=== PATIENT | male | born 1950 | race Caucasian/White ===

== ENCOUNTER → 2019-12-11 | Outpatient (CLI) | payer OTHER ==
[~2019-12-11] MED LIST: RT-ALBUTEROL SULF 2.5 MG/3 ML PRE-MIX VIAL INH ONE
== END ==
LOC: RT 10:00
PROVIDERS: ATTEND Family Medicine
DX: R06.00 Dyspnea, unspecified (principal); D75.1 Secondary polycythemia; Z72.0 Tobacco use
CPT/HCPCS: 94060; 94726; 94729

== ENCOUNTER → 2022-05-04 | Outpatient (CLI) | payer OTHER ==
--- NOTE | 2022-05-04 16:16 | Diagnostic Imaging Report ---
CT CHEST WO TECHNIQUE: Multiple contiguous axial images were obtained through the chest without the use of intravenous contrast. All CT scans use one or more of the following dose optimizing techniques: automated exposure control, MA and/or KvP adjustment based on a patient size and exam type, or iterative reconstruction. INDICATION: COPD. Nocturnal hypoxia COMPARISON: None available FINDINGS: Lungs and airway: No abnormality of the trachea. Severe paraseptal and centrilobular emphysema. Large bulla are present in the left lung. There is no pneumonia or edema. No suspicious pulmonary nodules. Pleura: No pleural effusion or pneumothorax. Heart and mediastinum: Thyroid is normal. No supraclavicular or axillary lymphadenopathy. No mediastinal or hilar lymphadenopathy. Normal caliber thoracic aorta. There is no pericardial effusion. Severe coronary calcifications are noted. Upper abdomen: Cholelithiasis likely present but there are no features of acute cholecystitis. Punctate nonobstructing 1 mm left renal stone. Musculoskeletal: No worrisome focal osseous lesions. IMPRESSION: 1. Severe emphysema with large bulla in the left lung. 2. No suspicious pulmonary nodule. 3. Severe coronary artery calcification. Dictated by: Dictated on workstation # [id number]
== END ==
LOC: RAD 11:45
PROVIDERS: ATTEND Family Medicine
DX: J43.9 Emphysema, unspecified (principal); I25.10 Atherosclerotic heart disease of native coronary artery without angina pectoris
CPT/HCPCS: 71250

== ENCOUNTER → 2022-05-17 | Outpatient (CLI) | payer OTHER | LOC: RT 10:45 | PROVIDERS: ATTEND Family Medicine | DX: J44.9 Chronic obstructive pulmonary disease, unspecified (principal); G47.34 Idiopathic sleep related nonobstructive alveolar hypoventilation | CPT/HCPCS: 94060; 94726; 94729 ==

== ENCOUNTER → 2022-06-01 | Outpatient (CLI) | payer OTHER | LOC: CARD 15:00 | PROVIDERS: ATTEND Family Medicine | DX: I07.1 Rheumatic tricuspid insufficiency (principal); I25.10 Atherosclerotic heart disease of native coronary artery without angina pectoris | CPT/HCPCS: 93306 ==

== ENCOUNTER → 2022-08-13 | Outpatient (CLI) | payer OTHER ==
[~2022-08-13] MED LIST changes: +CATHETER FLUSH 10 ML SYR IVP PRN; +REGADENOSON 0.4 MG/5 ML SYR (LEXISCAN) IV ONE; -RT-ALBUTEROL SULF 2.5 MG/3 ML PRE-MIX VIAL INH ONE
[2022-08-13 09:17] VITALS: BP 144/90
--- NOTE | 2022-08-13 11:51 | Cardiology Stress Test Report ---
Stress Test Report Date of Procedure/Referring: Date of Procedure: August 13, 2022 PCP Steffany Jensen DO Admitting Physician Admitting Physician: Attending Physician: Raymundo Rodríguez MD Baseline Heart Rate: 76 Baseline Blood Pressure: Blood Pressure Systolic: 144 Blood Pressure Diastolic: 90 Baseline Vitals Vital Signs Date Time Temp Pulse Resp B/P (MAP) Pulse Ox O2 Delivery O2 Flow Rate FiO2 08/13/22 09:17 76 144/90 (108) Baseline EKG: Baseline EKG: NSR Summary After explaining the procedure to the patient, he signed a consent and then brought to the stress nuclear laboratory. Patient received 0.4 mg Lexiscan for stress test, ECG, heart rate and blood pressure were monitored continuously. Resting and stress dose of radio tracer were injected, imaging was acquired and reviewed in short axis, horizontal long axis and vertical long axis views. TID: 1.07 SSS: 11 SDS: 5 EF: 67 Patient tolerated Lexiscan well Baseline right bundle branch block persisted during test Reversible ischemia involving the inferior wall and inferolateral wall Normal left ventricular size, ejection fraction 67% Copy Copies To 1: STEFFANY JENSEN BASHAR J MD August 13, 2022 11:51
== END ==
LOC: CARD 07:48
PROVIDERS: ATTEND Internal Medicine Cardiovascular Disease
DX: I25.10 Atherosclerotic heart disease of native coronary artery without angina pectoris (principal); I10 Essential (primary) hypertension
CPT/HCPCS: 78452; 93017; A9502

== ENCOUNTER → 2022-08-24 | Outpatient (CLI) | payer MEDICARE, OTHER ==
[~2022-08-24] MED LIST changes: +ALBU8.5H6 INH; +ASPI-1238 PO; +ASPI-816 PO; +ASPI-999 PO; +ATOR40TA70 PO; +BUDE10.7 IH; +CATHETER FLUSH 10 ML SYR IV PRN; -CATHETER FLUSH 10 ML SYR IVP PRN; +HOLD METFORMIN - RECEIVED CONTRAST 20 ML VIAL IV SCH; +IBUP-2473 PO; +IOHEXOL 350 MG/ML 100 ML (OMNIPAQUE 350) VIAL IV ONE; +KRIL1CAP21 PO; +LISI20TA26 PO; +MTP100TCR PO; +NS 100 ML (IVPB) BAG IV ONE; -REGADENOSON 0.4 MG/5 ML SYR (LEXISCAN) IV ONE; +SILD100T67 PO; +TRIA10.8 NSEACH; +VIT1CAPS44 PO; +[UNRECOGNIZED DRUG - CODE] PO
[2022-08-24 10:17] LABS: CREATININE SERUM 1.08 MG/DL (0.60-1.30)
--- NOTE | 2022-08-24 11:08 | Diagnostic Imaging Report ---
PROCEDURE: CT angiography of the head and CT angiography of the neck with and without contrast. TECHNIQUE: Contiguous noncontrast images were obtained from the skull base through the vertex. After intravenous contrast administration, helical CT angiography of the neck was performed. Source data was reformatted into 3D MIP projections. Delayed post contrast acquisition was also obtained. Auto Exposure Controls were utilized during the CT exam to meet ALARA standards for radiation dose reduction. INDICATION: Carotid artery stenosis. COMPARISON: None. FINDINGS: CTA Neck: The visualized portions of the aortic arch demonstrate no evidence of aneurysm or dissection. There is conventional branching pattern of the great vessels of the aorta. The brachiocephalic artery is normal in course and caliber. The right and left common carotid origins are unremarkable. The origin of the left subclavian artery is patent. The common carotid arteries and internal carotid arteries demonstrate a tortuous course. There is calcified atherosclerotic plaque in the bilateral carotid bulbs and proximal internal carotid arteries. There is high-grade stenosis of approximately 90% in the proximal left internal carotid artery based on NASCET criteria. No evidence of dissection in the carotid systems. The external carotid arteries are patent and unremarkable. The vertebral arteries are codominant. The origin of the right vertebral artery is seen and is unremarkable. The origin of the left vertebral artery is seen and is unremarkable. There is no focal stenosis seen within the neck. There is no dissection. The vertebral arteries are well visualized to up to the level of the basilar artery. The osseous structures of the cervical spine are unremarkable. Emphysema is seen in the lung apices. CTA brain: Atherosclerotic plaque is seen in the gil of the bilateral terminal internal carotid arteries without significant stenosis. No stenosis is seen in the bilateral anterior, middle, and posterior cerebral arteries. No evidence of aneurysm the pauma of Olivier. In the posterior circulation, both of the vertebral arteries demonstrate normal opacification. Both the right and left PICA arteries are identified. The basilar artery is normal in course and caliber. The terminal branch vessels including the superior cerebellar arteries unremarkable. CT head: No large acute territorial ischemia, mass, or hemorrhage. No midline shift or mass effect. Decreased attenuation is seen in the periventricular and subcortical white matter. The ventricles and cortical sulci are prominent. The basilar cisterns are patent and unremarkable. There is prominent extra-axial space posterior to the right cerebellum. The calvarium is intact. The visualized paranasal sinuses are clear. IMPRESSION: 1. No stenosis or aneurysm in the pauma of Olivier. No large vessel occlusion. 2. High-grade stenosis of approximately 90% in the proximal left internal carotid artery. 3. No stenosis in the right carotid system and bilateral vertebral arteries. 4. No large acute territorial ischemia. No acute hemorrhage or mass. Dictated by: Dictated on workstation # [id number]
== END ==
LOC: RAD 10:15
PROVIDERS: ATTEND Internal Medicine Cardiovascular Disease
DX: I65.23 Occlusion and stenosis of bilateral carotid arteries (principal)
CPT/HCPCS: 36415; 70496; 70498; 82565; 84520

== ENCOUNTER 2022-08-29 11:00 | Day surgery (SDC) | payer MEDICARE, OTHER ==
[~2022-08-29] VITALS: Ht 182 cm; Wt 78.5 kg
[2022-08-29 09:41] VITALS: BP 144/78
[2022-08-29 09:43] LABS: HEMATOCRIT 48 % (40-54); HEMOGLOBIN 16.5 g/dL (13.3-17.7); MEAN CORPUSCULAR HEMOGLOBIN 34 pg (25-34); MEAN CORPUSCULAR HGB CONC 34 g/dL (32-36); MEAN CORPUSCULAR VOLUME 99 fL (80-99); MEAN PLATELET VOLUME 10.5 fL (9.0-12.2); PLATELET COUNT 250 10^3/uL (130-400); WHITE BLOOD COUNT 8.2 10^3/uL (4.3-11.0)
[2022-08-29 09:45] LABS: BILIRUBIN,URINE NEGATIVE (NEGATIVE); CLARITY,URINE CLEAR; COLOR,URINE YELLOW; GLUCOSE, URINE (UA) NEGATIVE (NEGATIVE); KETONES,URINE NEGATIVE (NEGATIVE); LEUKOCYTE ESTERASE ,URINE NEGATIVE (NEGATIVE); NITRITE,URINE NEGATIVE (NEGATIVE); PH,URINE 5.5 (5-9); PROTEIN,URINE NEGATIVE (NEGATIVE)
--- NOTE | 2022-08-29 09:47 | Cardiac Procedure Note-CS/ASA ---
Pre-Procedure Note Pre-Op Procedure Note Date of Available H&P: August 16, 2022 Date H&P Reviewed: Aug 29, 2022 Time H&P Reviewed: 09:46 History & Physical: H&P Reviewed, Patient Examed, No changes noted Pre-Operative Diagnosis: CAD Moderate Sedation PreProcedure Time 09:47 ASA Score 3 Airway Lungs Heart ASA score ASA 1: a normal healthy patient ASA 2: a patient with a mild systemic disease (mid diabetes, controlled hypertension, obesity ASA 3: a patient with a severe systemic disease that limits activity (angina, COPD, prior Myocardial infarction) ASA 4: a patient with an incapacitating disease that is a constant threat to life (CHF, renal failure) ASA 5: a moribund patient not expected to survive 24 hrs. (ruptured aneurysm) ASA 6: a declared brain- patient whose organs are being harvested. For emergent operations, add the letter E after the classification Mallampati Classification Grade 3 Sedation Plan Analgesia, Amnesia, Plan communicated to team members, Discussed options with patient/fam, Discussed risks with patient/fam The patient is an appropriate candidate to undergo the planned procedure, sedation, and anesthesia. The patient immediately re-assessed prior to indication. TASNEEM RAINES MD Aug 29, 2022 09:47
--- NOTE | 2022-08-29 09:51 | Diagnostic Imaging Report ---
EXAMINATION: Chest 1 view HISTORY: ABNORMAL STRESS TEST COMPARISON: None available. FINDINGS: Heart size and pulmonary vasculature are normal. Trace bilateral pleural effusions or pleural thickening. There are patchy opacities within the right mid and lower lung. Minimal left basilar opacities. Background emphysematous changes of the lungs. No pneumothorax. Degenerative changes of the thoracic spine. Osseous structures are otherwise intact. IMPRESSION: 1. Background COPD with possible superimposed pneumonia within the right mid and lower lung. Dictated by: Dictated on workstation # [id number]
[2022-08-29 09:55] LABS: BACTERIA,URINE TRACE /HPF; SQUAMOUS EPITHELIAL CELL,UR RARE /HPF
[2022-08-29 09:57] LABS: INR 0.9 (0.8-1.4); PROTHROMBIN TIME PATIENT 12.4 SEC (12.2-14.7)
[2022-08-29 10:03] LABS: ALBUMIN 4.2 GM/DL (3.2-4.5); BILIRUBIN,TOTAL 0.7 MG/DL (0.1-1.0); CALCIUM 9.8 MG/DL (8.5-10.1); CREATININE SERUM 0.86 MG/DL (0.60-1.30); POTASSIUM 3.9 MMOL/L (3.6-5.0); TOTAL PROTEIN 7.6 GM/DL (6.4-8.2)
[~2022-08-29 11:00] MED LIST changes: -ASPI-1238 PO; -ASPI-816 PO; -CATHETER FLUSH 10 ML SYR IV PRN; +HEParin (CATH LAB) 2,000 ML IV ONE; -HOLD METFORMIN - RECEIVED CONTRAST 20 ML VIAL IV SCH; -IOHEXOL 350 MG/ML 100 ML (OMNIPAQUE 350) VIAL IV ONE; -KRIL1CAP21 PO; +LIDOCAINE 1% INJ 20 ML VIAL ONE; -NS 100 ML (IVPB) BAG IV ONE; +NS IV 1000 ML 1,000 ML IV ONE; +NS IV 1000 ML 1,000 ML ONE; -VIT1CAPS44 PO
[2022-08-29] MEDS ORDERED: MIDAZOLAM 5 MG/5 ML (VERSED) VIAL ONE (11:08)
[2022-08-29] MEDS ORDERED: fentaNYL INJ 100 MCG/2 ML AMP ONE (11:08)
[2022-08-29] MEDS ORDERED: HEParin 1000 UNIT/ML (10ML VIAL) FOR BOLUS ONE (11:47)
[2022-08-29] MEDS ORDERED: NITRO DRIP 25000 MCG/D5W 250 ML IV ONE (12:09)
--- NOTE | 2022-08-29 12:26 | Cardiac Cath Report ---
Cardiac Cath Report Physician (s)/Cans Vacuum Tester (s) Physician TASNEEM RAINES MD Pre-Procedure Diagnosis Pre-Procedure Diagnosis: CAD Post-Procedure Note Procedure Start Date: Aug 29, 2022 Name of Procedure: Left heart catheterization IFR to the LAD IFR to the circumflex artery PTCA to the obtuse marginal Findings/Procedure Note PROCEDURE NOTE: 71-year-old gentleman with history of hypertension, hyperlipidemia, had an abnormal stress test, scheduled for cardiac catheterization possible PTCA. After explaining the procedure to the patient, all pros and cons were explained, all questions were answered. The patient signed the consent and then he was placed in the cardiac catheterization laboratory. Groin was prepped in SL fashion local anesthesia was used. Sheath placed in the right femoral artery. Maribell' right and left catheter were used to access the coronary system. Maribell right was prolapsed to the left ventricular cavity, pressure was measured. Pullback LV to aorta was done. Patient received 6000 units of heparin, Maribell left guide was used. iFR wire was advanced through the circumflex artery and at the mid circumflex artery IFR was 1.01. Then it was pulled back and redirected in the LAD and the mid LAD was 0.93. I pulled back the wire and redirected it in the obtuse marginal branch that is a small artery has 95% stenosis. Balloon angioplasty with 2 x 20 trek balloon was done with multiple inflation with no residual stenosis. At the end of the procedure the sheath was removed. Closure device FINDINGS: Hemodynamics LV 113/7, end-diastolic pressure of 7 Aorta 133/80 mean of 102 ANATOMY: Left Main is free of obstructive disease Left Anterior Descending is heavily calcified proximally with 50 to 60% stenosis proximally. iFR across the LAD was 0.93 Left Circumflex is calcified proximally with 50% stenosis proximally, IFR through the circumflex artery was 1.01 Obtuse marginal branch is a very small artery less than 2 mm with 95% ostial stenosis. I proceeded with balloon angioplasty using 2 x 20 trek balloon. Postintervention there was 0% residual stenosis. Right Coronary Artery is moderate in size dominant artery with no obstructive disease LV Gram was not done, pressure was measured PERCUTANEOUS INTERVENTION: Pre stenosis 95% Post Stenosis 0% Pre MARILIN flow 2 Post MARILIN flow 3 Dominance right coronary artery CONCLUSION: 95% ostial obtuse marginal branch stenosis, small artery successful balloon angioplasty with 0% residual stenosis. 50% mid circumflex artery stenosis with IFR 1.01. 50 to 60% proximal and mid LAD stenosis, heavily calcified artery with IFR 0.93 Dominant right coronary artery with nonobstructive disease Normal left ventricular end-diastolic pressure DISCUSSION AND RECOMMENDATION: Patient was loaded with aspirin and Plavix. Maximize medical therapy, adding statin and monitor Anesthesia Type: Conscious Sedation Estimated blood loss (mL): 25 ml Contrast Amount: 120 ml Post-Procedure Diagnosis Post-operative diagnosis: Chest pain Coronary artery disease Hypertension Hyperlipidemia TASNEEM RAINES MD Aug 29, 2022 12:26
[2022-08-29] MEDS ORDERED: PATIENT MAY USE OWN MEDS, ALL PO SCH (12:30)
[2022-08-29] MEDS ORDERED: IBUPROFEN TABLET 200 MG TAB PO PRN (12:30)
[2022-08-29] MEDS ORDERED: ASPIRIN 325 MG (5 GR) TABLET ONE (12:31)
[2022-08-29] MEDS ORDERED: CLOPIDOGREL 300 MG (PLAVIX) TABLET PO ONE (12:31)
[2022-08-29] MEDS ORDERED: KRIL1CAP21 PO (14:27)
[2022-08-29] MEDS ORDERED: ASPI-1238 PO (14:27)
[2022-08-29] MEDS ORDERED: ASPI-816 PO (14:27)
[2022-08-29] MEDS ORDERED: VIT1CAPS44 PO (14:27)
[2022-08-29] MEDS ORDERED: ATROPINE INJECTION 1 MG/10 ML SYR (ABBOTT) ONE (14:32)
[2022-08-29] MEDS: NS IV 1000 ML 1,000 ML IV SCH (15:08)
[2022-08-29] MEDS ORDERED: BREZTRI 160/9/4.8 MCG INHALER IH SCH (21:00)
[2022-08-30] MEDS: NS IV 1000 ML 1,000 ML IV SCH ×2 (00:07→08:16)
[2022-08-30] MEDS ORDERED: PANT40SU PO (06:43)
[2022-08-30] MEDS ORDERED: CLOP75TA28 PO (06:43)
--- NOTE | 2022-08-30 06:44 | Discharge Inst-Post CATH ---
Discharge Inst-CATH/EP Problems Reviewed?: Yes Post Cardiac Cath/EP D/C Inst Follow Up/Plan Appointment with Dr Rodríguez in 2-4 weeks <b>CARDIAC CATH/EP PROCEDURE DISCHARGE INSTRUCTIONS</b> ACTIVITY * Go Home directly and rest. * Limit activity of the leg (or wrist if it was used) for 7 days including aerobics, swimming, jogging, bicycling, etc. * Restrict stair-climbing for 7 days if possible, if not, climb up with your non-cath leg, then bring together on the same step. * Avoid lifting, pushing, pulling or excessive movement of the affected extremity for 7 days. * Customary sexual activity may be resumed after 2 days-use caution not to use a position that strains or causes pain to the affected extremity. * No driving for 24 hours. * NO SMOKING. * Avoid straining for bowel movements for 7 days. * Gentle walking on level ground is allowed. * Returning to work will depend on the type of procedure and the results. Your doctor will discuss this with you. CALL YOUR DOCTOR FOR ANY OF THE FOLLOWING: *If bleeding from the puncture site occurs- Apply gentle pressure to site with clean cloth and call your doctor or EMS. * If a knot or lump forms under the skin, increases in size, or causes pain. * If bruising appears to be worsening or moving further down your leg instead of disappearing. * Temperature above 101 F. CARE OF YOUR GROIN INCISION; * Bruising or purple discoloration of the skin near the puncture site is common. * You may shower only, no bathtub bathing for 5 days. Be careful to avoid slipping as your leg may feel stiff. * If a closure device was used on your femoral artery, please see the attached guide regarding care of the device and your leg. * Leave dressing on FOR 24 hours. CARE OF YOUR WRIST INCISION; * Bruising or purple discoloration of the skin near the puncture site is common. * You may shower. * DO NOT submerge wrist. * Leave dressing on FOR 24 hours. TASNEEM RODRÍGUEZ MD Aug 30, 2022 06:44
[2022-08-30] MEDS ORDERED: ATOR10TA PO (06:45)
[2022-08-30] MEDS ORDERED: MULTIVIT W/MINERALS TAB (THERAGRAN M) PO SCH (07:00)
[2022-08-30 07:30] VITALS: BP 141/88
[2022-08-30 08:00] VITALS: BP 145/77
--- NOTE | 2022-08-30 08:19 | Cardiology Progress Note ---
Subjective Date Seen by Provider: Aug 30, 2022 Time Seen by Provider: 08:18 Subjective/Events-last exam Patient was seen at bedside, laying down comfortably. No new complaint. Review of Systems General: No Chills, No Night Sweats, No Fatigue, No Malaise, No Appetite, No Other HEENT: No Head Aches, No Visual Changes, No Eye Pain, No Ear Pain, No Dysphasia, No Sinus Congestion, No Post Nasal Drip, No Sore Throat, No Other Pulmonary: No Dyspnea, No Cough, No Pleuritic Chest Pain, No Other Cardiovascular: No: Chest Pain, Palpitations, Orthopnea, Paroxysmal Noc. Dyspnea, Edema, Lt Headedness, Other Objective-Cardiology Exam Last Set of Vital Signs Vital Signs 08/30/22 08:00 Temp 36.5 Pulse 78 Resp 14 B/P (MAP) 145/77 (99) Pulse Ox 93 O2 Delivery Nasal Cannula O2 Flow Rate 2.00 I&O Intake and Output 08/30/22 00:00 Intake Total 100 ml Output Total 40 ml Balance 60 ml Intake Oral 100 ml Output Urine Total 40 ml General: Alert, Oriented X3, Cooperative HEENT: Atraumatic, PERRLA Neck: Supple, No JVD, No Thyromegaly Lungs: Clear to Auscultation, Normal Air Movement Heart: Regular Rate, Normal S1, Normal S2, No Murmurs Abdomen: Normal Bowel Sounds, Soft, No Tenderness, No Hepatosplenomegaly, No Masses Extremities: No Clubbing, No Cyanosis, No Edema, Normal Pulses, No Tenderness/Swelling Skin: No Rashes, No Breakdown, No Significant Lesion Neuro: Normal Gait, Normal Speech, Strength at 5/5 X4 Ext, Normal Tone, Sensation Intact Psych/Mental Status: Mental Status NL, Mood NL Results Lab Laboratory Tests 08/29/22 09:36 A/P-Cardiology Admission Diagnosis Coronary artery disease Hypertension Hyperlipidemia Chest pain Assessment/Plan Coronary artery disease Status post balloon angioplasty to the obtuse marginal. IFR to the circumflex and LAD showed nonobstructive disease Hypertension, continue on current medication monitor blood pressure Hyperlipidemia, monitor lipids I am planning for discharge today and follow-up as an outpatient TASNEEM RAINES MD Aug 30, 2022 08:19
[2022-08-30] MEDS ORDERED: CLOPIDOGREL 75 MG (PLAVIX) TABLET PO SCH (09:00)
[2022-08-30] MEDS ORDERED: meTOprolol SUCCINATE 100 MG (TOPROL XL) TAB PO SCH (09:00)
[2022-08-30] MEDS ORDERED: lisINopril 20 MG (PRINIVIL) TABLET PO SCH (09:00)
[2022-08-30] MEDS ORDERED: ASPIRIN 81 MG CHEW (CHILDREN'S ASA) PO SCH (09:00)
[2022-08-30] MEDS ORDERED: [UNRECOGNIZED DRUG - OTHER] PO SCH (09:00)
[2022-08-30] MEDS ORDERED: TRIAMCINOLONE ACETONIDE NS SCH (09:00)
[2022-08-30] MEDS ORDERED: SILDENAFIL CITRATE 100 MG PO SCH (09:00)
== END 2022-08-30 11:21 | disposition home or self-care (01) ==
LOC: CATH 11:00 → ICU 12:46 → CATH 08-30 11:21
PROVIDERS: ATTEND Internal Medicine Cardiovascular Disease
DX: I25.10 Atherosclerotic heart disease of native coronary artery without angina pectoris (principal); I10 Essential (primary) hypertension; E78.5 Hyperlipidemia, unspecified; I27.20 Pulmonary hypertension, unspecified; I07.1 Rheumatic tricuspid insufficiency; I65.23 Occlusion and stenosis of bilateral carotid arteries; Z79.899 Other long term (current) drug therapy; Z87.891 Personal history of nicotine dependence
CPT/HCPCS: 71045; 80053; 80061; 81000; 85027; 85610; 85730; 87081; 92920; 93005; 93458; 93571; 93572; C1725; C1769 ×2; C1887; C1894; 36415

== ENCOUNTER 2022-10-23 23:16 | Emergency (ER) | payer MEDICARE, OTHER ==
[~2022-10-23] VITALS: Ht 182.9 cm; Wt 78.5 kg
[~2022-10-23 23:16] MED LIST changes: +ASPI-1238 PO; +ASPI-816 PO; +ATOR10TA PO; +CLOP75TA28 PO; -HEParin (CATH LAB) 2,000 ML IV ONE; +KRIL1CAP21 PO; -LIDOCAINE 1% INJ 20 ML VIAL ONE; -NS IV 1000 ML 1,000 ML IV ONE; -NS IV 1000 ML 1,000 ML ONE; +PANT40SU PO; +VIT1CAPS44 PO
--- NOTE | 2022-10-23 23:41 | ED GU-Male ---
General Chief Complaint: - Reproductive Stated Complaint: UNABLE TO URINATE Nursing Triage Note: TO ED VIA POV AND AMBULATORY TO ROOM 5 WITH C/O "CAN'T PEE". PT PRESENTS WITH INDWELLING URINARY CATHETER. PT STATES HE HAD SX 10/13 FOR "CAROTID" AND COULDN'T PEE AFTERWARD AND HE WAS SENT HOME WITH CATHETER. PT STATES HE SAW A UROLOGIST AT [facility] IN [place], [place] TODAY AND "THE DOCTOR JUST TALKED TO ME AND THEY COULDN'T EVEN TELL ME WHEN THEY COULD SET UP A NEW APPOINTMENT". Source: patient Exam Limitations: no limitations History of Present Illness Date Seen by Provider: Oct 23, 2022 Time Seen by Provider: 23:19 Initial Comments 72-year-old male with urinary retention recently coming in due to urine not coming out of his catheter. He has had a catheter since October 13. He states no urine has come out for several hours now, was working this morning. Otherwise denies any fever, nausea, vomiting, or any other concerns. Does have some suprapubic fullness he states and feels like he needs to urinate. Otherwise denies any other acute complaints. Allergies and Home Medications Allergies Coded Allergies: No Known Drug Allergies (Unverified , 12/11/19) Patient Home Medication List Home Medication List Reviewed: Yes Albuterol Sulfate (Ventolin Hfa) 90 Mcg Hfa.aer.ad, 2 PUFF INH BID, (Reported) Entered as Reported by: ENRIQUE LANGE on 08/29/22 1001 Aspirin (Aspirin EC) 81 Mg Tablet.dr, 162 MG PO DAILY, (Reported) Entered as Reported by: ANGEL NAZARIO on 08/29/22 1427 Atorvastatin Calcium (Atorvastatin Calcium) 40 Mg Tablet, 40 MG PO DAILY, (Reported) Entered as Reported by: ENRIQUE LANGE on 08/29/22 1001 Atorvastatin Calcium (Lipitor) 10 Mg Tablet, 10 MG PO DAILY Prescribed by: TASNEEM RAINES on 08/30/22 0645 Budesonide/Glycopyr/Formoterol (Breztri Aerosphere Inhaler) 160 Mcg-9 Mcg-4.8 Mcg/Actuation Hfa.aer.ad, 2 PUFF IH BID, (Reported) Entered as Reported by: ENRIQUE LANGE on 08/29/22 1001 Clopidogrel Bisulfate (Clopidogrel) 75 Mg Tablet, 75 MG PO DAILY Prescribed by: TASNEEM RAINES on 08/30/22 0643 Krill/Om-3/Dha/Epa/Phospho/Ast (Megared [place]-3 Krill Oil Sfgl) 300-90-24 Capsule, 1 EACH PO DAILY, (Reported) Entered as Reported by: ANGEL NAZARIO on 08/29/22 142 Lisinopril (Lisinopril) 20 Mg Tablet, 20 MG PO DAILY, (Reported) Entered as Reported by: ENRIQUE LANGE on 08/29/22 1001 Metoprolol Succinate (Metoprolol Succinate) 100 Mg Tab.er.24h, 100 MG PO DAILY, (Reported) Entered as Reported by: ENRIQUE LANGE on 08/29/22 1001 Multivit,Ca,Iron,Min/FA/Qij439 (One Daily Healthy Weight Tab) 200 Mg-18 Mg-400 Mcg Tablet, 1 EACH PO DAILY, (Reported) Entered as Reported by: ENRIQUE LANGE on 08/29/22 1001 Pantoprazole Sodium (Protonix) 40 Mg Granpkt.dr, 40 MG PO DAILY Prescribed by: TASNEEM RAINES on 08/30/22 06 Sildenafil Citrate (Sildenafil Citrate) 100 Mg Tablet, 100 MG PO DAILY, (Reported) Entered as Reported by: ENRIQUE LANGE on 08/29/22 1001 Triamcinolone Acetonide (Nasacort) 55 Mcg [place], 1-2 SPRAYS NSEACH DAILY PRN for ALLERGY SYMPTOMS, (Reported) Entered as Reported by: ENRIQUE LANGE on 08/29/22 1001 Vit C/E/Zn/Coppr/Lutein/Zeaxan (Preservision Areds 2 Softgel) 250MG-90MG Capsule, 1 EACH PO DAILY, (Reported) Entered as Reported by: ANGEL NAZARIO on 08/29/221426 Review of Systems Review of Systems Constitutional: No fever EENTM: no symptoms reported Respiratory: no symptoms reported Cardiovascular: no symptoms reported Gastrointestinal: no symptoms reported Genitourinary: see HPI Musculoskeletal: no symptoms reported Skin: no symptoms reported Psychiatric/Neurological: No Symptoms Reported Endocrine: No Symptoms Reported Past Reiqdkx-Dedtel-Nqesxv Hx Patient Social History Tobacco Use?: No Substance use?: No Alcohol Use?: Yes Alcohol Frequency: Once in a while Immunizations Up To Date COVID19 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 oz. kg; 23.00 BMI Method: General Appearance: WD/WN, no apparent distress HEENT: PERRL/EOMI, normal ENT inspection, pharynx normal Neck: non-tender, full range of motion, supple, normal inspection Cardiovascular: regular rate, rhythm Respiratory: chest non-tender, lungs clear, normal breath sounds, no respiratory distress, no accessory muscle use Gastrointestinal: normal bowel sounds, soft; No distended, No guarding, No rebound; tenderness (Some suprapubic tenderness and fullness) Back: normal inspection, no CVA tenderness Extremities: normal range of motion, non-tender, normal inspection, no pedal edema, no calf tenderness, normal capillary refill Neurologic/Psychiatric: no motor/sensory deficits, alert, normal mood/affect Skin: normal color, warm/dry Progress/Results/Core Measures Suspected Sepsis SIRS Temperature: Pulse: 126 Respiratory Rate: 18 Blood Pressure 146 /94 Mean: 111 Results/Orders Lab Results Laboratory Tests Test 10/23/22 23:56 Range/Units Urine Color YELLOW Urine Clarity SL CLOUDY Urine pH 6.0 5-9 Urine Specific [place] 1.020 1.016-1.022 Urine Protein NEGATIVE NEGATIVE Urine Glucose (UA) NEGATIVE NEGATIVE Urine Ketones NEGATIVE NEGATIVE Urine Nitrite NEGATIVE NEGATIVE Urine Bilirubin NEGATIVE NEGATIVE Urine Urobilinogen 1.0 < = 1.0 MG/DL Urine Leukocyte Esterase TRACE H NEGATIVE Urine RBC (Auto) 2+ H NEGATIVE Urine RBC 10-25 H /HPF Urine WBC 2-5 /HPF Urine Crystals NONE /LPF Urine Bacteria FEW H /HPF Urine Casts NONE /LPF Urine Mucus MODERATE H /LPF Urine Culture Indicated YES My Orders Orders - BRETT HOANG MD Ua Culture If Indicated (10/23/22 23:38) Catheter(Urinary) Insert & Ass 03,15 (10/23/22 23:38) Lidocaine 2% (Urojet) (Xylocaine Urojet) (10/23/22 23:45) Urine Culture (10/23/22 23:56) Vital Signs/I&O 10/23/22 23:24 Temp 36.7 Pulse 126 Resp 18 B/P (MAP) 146/94 (111) Pulse Ox 91 O2 Delivery Room Air Capillary Refill : Less Than 3 Seconds Blood Pressure Mean: 111 Progress Note : Progress Note 32-year-old male presenting due to suprapubic discomfort with his Kear[place] catheter not draining for the past several hours. ABCs were intact and vitals were stable on presentation. Physical exam with a Kearney catheter in place draining some urine, but he does have suprapubic fullness and discomfort. I did a point- of-care ultrasound showing just under liter of urine in his bladder. The Kearney was replaced with good drainage. Urinalysis obtained showing some blood which is expected, no obvious infection. It has not been blocked for long enough for me to be concerned about his kidney function. I believe he is otherwise stable for discharge with outpatient follow-up with urology. He was sent home with strict return precautions Departure Impression Primary Impression: Kearney catheter problem Qualified Codes: T83.9XXA - Unspecified complication of genitourinary p rosthetic device, implant and graft, initial encounter Disposition: 01 HOME, SELF-CARE Condition: Improved Departure-Patient Inst. Decision time for Depature: 00:40 Referrals: NADIA WONG DO (PCP/Family) Primary Care Physician Patient Instructions: How to Care for Your Kearney Catheter, Male Add. Discharge Instructions: Please follow back up with the urologist in regards to your K[place] catheter and when that can be removed. If you notice that it is not draining again in the future, you can try pushing on your abdomen and repositioning it somewhat around your penis to see if it will continue to drain. If it does not, then call your regular doctor or come back to the ER. Work/School Note: Family Work Note Patient Received Medical Care In the Emergency Department On: Oct 24, 2022 Patient Will Be Able to Return to Work/School On: Oct 25, 2022 BRETT HOANG MD Oct 23, 2022 23:41
[2022-10-23] MEDS ORDERED: LIDOCAINE UROJET 2% GEL 10 ML PKG TOP ONE (23:45)
[2022-10-24 00:14] LABS: BILIRUBIN,URINE NEGATIVE (NEGATIVE); CLARITY,URINE SL CLOUDY; COLOR,URINE YELLOW; GLUCOSE, URINE (UA) NEGATIVE (NEGATIVE); KETONES,URINE NEGATIVE (NEGATIVE); LEUKOCYTE ESTERASE ,URINE TRACE (NEGATIVE); NITRITE,URINE NEGATIVE (NEGATIVE); PROTEIN,URINE NEGATIVE (NEGATIVE)
[2022-10-24 00:28] LABS: BACTERIA,URINE FEW /HPF
[2022-10-24 00:41] VITALS: BP 132/89
== END 2022-10-24 00:45 | disposition home or self-care (01) ==
LOC: EDUNIT# 23:16 → ER 23:18
DX: T83.091A Other mechanical complication of indwelling urethral catheter, initial encounter (principal); Z96.0 Presence of urogenital implants
CPT/HCPCS: 51702; 81000; 87088

== ENCOUNTER → 2022-10-24 | Outpatient (CLI) | payer MEDICARE, OTHER ==
--- NOTE | 2022-10-24 17:46 | Diagnostic Imaging Report ---
HISTORY: Low back pain TECHNIQUE: 3 views of the lumbar spine COMPARISON: None FINDINGS: There is grade 1 anterolisthesis at L3-L4. There is severe degenerative change at L5-S1. Vertebral body heights are preserved. There is facet arthropathy in the lower lumbar spine. No acute fracture is seen. Bilateral sacroiliac joints are patent. There is calcific atherosclerosis. IMPRESSION: 1. Degenerative changes in the lumbar spine with no acute osseous abnormality seen. Dictated by: Dictated on workstation # [id number]
--- NOTE | 2022-10-24 17:46 | Diagnostic Imaging Report ---
HISTORY: Left hip pain. TECHNIQUE: Two views of the left hip. COMPARISON: None. FINDINGS: There is severe degenerative change in the left hip joint with complete joint space loss, subchondral sclerosis and cyst-like changes. No acute fracture is seen. Alignment is normal. The sacroiliac joints are patent. IMPRESSION: 1. Severe degenerative change in the left hip with no acute fracture seen. Dictated by: Dictated on workstation # [id number]
== END ==
LOC: RAD 17:17
PROVIDERS: ATTEND Family Medicine
DX: M47.816 Spondylosis without myelopathy or radiculopathy, lumbar region (principal); M16.12 Unilateral primary osteoarthritis, left hip
CPT/HCPCS: 72100; 73502

== ENCOUNTER 2022-11-12 11:23 | Emergency (ER) | payer MEDICARE, OTHER ==
[~2022-11-12] VITALS: Ht 182 cm; Wt 80.0 kg
[2022-11-12] MEDS ORDERED: LIDOCAINE UROJET 2% GEL 10 ML PKG TOP ONE (12:30)
[2022-11-12] MEDS ORDERED: NS IV 500 ML 500 ML IV ONE (12:30)
--- NOTE | 2022-11-12 12:39 | ED GU-Male ---
General Chief Complaint: - Reproductive Stated Complaint: BLOOD IN CATHETER Nursing Triage Note: PT AMB TO RM 2 W CANE, PT CO OF BLOOD IN CATHETER BAG STARTED EARLY THIS AM. PT HAD CATH INSERTED AFTER NOT BEING ABLE TO VOID POST L CAROTID SURG. PT DENIES PAIN. STATES HAS APPT ON SAT W DR MACIAS IN [place]. PT IS CURRENTLY TAKING BACTRIM DS AND TAMULOSIN FOR URINARY PROBLEMS Source: patient Exam Limitations: no limitations History of Present Illness Date Seen by Provider: Nov 12, 2022 Time Seen by Provider: 12:25 Initial Comments Here with change in color of his urine in his catheter bag that looks red or dark. Not passing clots. Does have urinary retention that started after martinez tid enterectomy a month ago. He has follow-up with Dr. Caba, urology in [facility], this week for recheck and further evaluation of this. He has been on Bactrim DS daily for urinary tract infection prevention. Denies fever or chills. Denies nausea or vomiting. Patient states that he has not eaten as well as normal and he thinks he is drinking okay but family member reports that he is not drinking as well as he normally does. She reports that his urine was yellow yesterday and not this color. Timing/Duration: this morning, constant Severity/Quality: other (Pain) Location: other (Catheter with dark/red urine) Radiation: none Activities at Onset: none Associated Symptoms: No abdominal pain, No fever/chills, No lower back pain, No nausea/vomiting Allergies and Home Medications Allergies Coded Allergies: No Known Drug Allergies (Unverified , 12/11/19) Patient Home Medication List Home Medication List Reviewed: Yes Albuterol Sulfate (Ventolin Hfa) 90 Mcg Hfa.aer.ad, 2 PUFF INH BID, (Reported) Entered as Reported by: ENRIQUE LANGE on 08/29/22 1001 Aspirin (Aspirin EC) 81 Mg Tablet., 162 MG PO DAILY, (Reported) Entered as Reported by: ANGEL NAZARIO on 08/29/22 1427 Atorvastatin Calcium (Atorvastatin Calcium) 40 Mg Tablet, 40 MG PO DAILY, (Reported) Entered as Reported by: ENRIQUE LANGE on 08/29/22 1001 Atorvastatin Calcium (Lipitor) 10 Mg Tablet, 10 MG PO DAILY Prescribed by: TASNEEM RAINES on 08/30/22 06 Budesonide/Glycopyr/Formoterol (Breztri Aerosphere Inhaler) 160 Mcg-9 Mcg-4.8 Mcg/Actuation Hfa.aer.ad, 2 PUFF IH BID, (Reported) Entered as Reported by: ENRIQUE LANGE on 08/29/22 100 Clopidogrel Bisulfate (Clopidogrel) 75 Mg Tablet, 75 MG PO DAILY Prescribed by: TASNEEM RAINES on 08/30/22 06 Krill/Om-3/Dha/Epa/Phospho/Ast (Megared [place]-3 Krill Oil Sfgl) 300-90-24 Capsule, 1 EACH PO DAILY, (Reported) Entered as Reported by: ANGEL NAZARIO on 08/29/221426 Lisinopril (Lisinopril) 20 Mg Tablet, 20 MG PO DAILY, (Reported) Entered as Reported by: ENRIQUE LANGE on 08/29/22 100 Metoprolol Succinate (Metoprolol Succinate) 100 Mg Tab.er.24h, 100 MG PO DAILY, (Reported) Entered as Reported by: ENRIQUE LANGE on 08/29/22 100 Multivit,Ca,Iron,Min/FA/Iiq508 (One Daily Healthy Weight Tab) 200 Mg-18 Mg-400 Mcg Tablet, 1 EACH PO DAILY, (Reported) Entered as Reported by: ENRIQUE LANGE on 08/29/22 100 Pantoprazole Sodium (Protonix) 40 Mg Granpkt.dr, 40 MG PO DAILY Prescribed by: TASNEEM RAINES on 08/30/22642 Sildenafil Citrate (Sildenafil Citrate) 100 Mg Tablet, 100 MG PO DAILY, (Reported) Entered as Reported by: ENRIQUE LANGE on 08/29/22 100 Triamcinolone Acetonide (Nasacort) 55 Mcg [place], 1-2 SPRAYS NSEACH DAILY PRN for ALLERGY SYMPTOMS, (Reported) Entered as Reported by: ENRIQUE LANGE on 08/29/22 100 Vit C/E/Zn/Coppr/Lutein/Zeaxan (Preservision Areds 2 Softgel) 250MG-90MG Capsule, 1 EACH PO DAILY, (Reported) Entered as Reported by: ANGEL NAZARIO on 08/29/221426 Review of Systems Review of Systems Constitutional: see HPI; No chills, No fever Respiratory: no symptoms reported Cardiovascular: no symptoms reported Gastrointestinal: see HPI Genitourinary: see HPI Musculoskeletal: no symptoms reported Skin: no symptoms reported Past Ifxeszu-Jvfwaj-Dltsnr Hx Patient Social History Tobacco Use?: No Smoking Status: Former Smoker Substance use?: No Alcohol Use?: Yes Alcohol Frequency: Rarely Pt feels they are or have been: No Immunizations Up To Date First/Initial COVID19 Vaccinat: YES Second COVID19 Vaccination Tal: YES Past Medical History Surgery/Hospitalization HX: RECENT CAROTID, BILAT INGUINAL HERNIA REPAIR, HEART CATH [facility] Surgeries: Yes Abdominal, Cardiac, Vascular Surgery Respiratory: Yes COPD High Cholesterol, Hypertension Family Medical History Reviewed Nursing Family Hx No Pertinent Family Hx Physical Exam Vital Signs Vital Signs - First Documented 11/12/22 11:47 Temp 37.2 Pulse 73 Resp 18 B/P (MAP) 158/84 (108) Pulse Ox 96 Capillary Refill : Less Than 3 Seconds Height, Weight, BMI Height: '" Weight: lbs. oz. kg; 24.00 BMI Method: General Appearance: WD/WN, no apparent distress Neck: full range of motion, supple Cardiovascular: regular rate, rhythm, no murmur Respiratory: lungs clear, normal breath sounds Gastrointestinal: non tender, soft Back: normal inspection, no CVA tenderness, no vertebral tenderness Neurologic/Psychiatric: alert, oriented x 3 Skin: normal color, warm/dry Progress/Results/Core Measures Suspected Sepsis SIRS Temperature: Pulse: 73 Respiratory Rate: 18 Laboratory Tests 11/12/22 12:45: White Blood Count 7.8 Blood Pressure 158 /84 Mean: 108 Laboratory Tests 11/12/22 12:45: Creatinine 0.79, Platelet Count 253, Total Bilirubin 0.8 Results/Orders Lab Results Laboratory Tests Test 11/12/22 11:56 11/12/22 12:45 Range/Units Urine Color BROWN H Urine Clarity TURBID Urine pH 6.0 5-9 Urine Specific [place] 1.025 H 1.016-1.022 Urine Protein 3+ H NEGATIVE Urine Glucose (UA) NEGATIVE NEGATIVE Urine Ketones 1+ H NEGATIVE Urine Nitrite POSITIVE H NEGATIVE Urine Bilirubin 3+ H NEGATIVE Urine Urobilinogen 4 H < = 1.0 MG/DL Urine Leukocyte Esterase 3+ H NEGATIVE Urine RBC (Auto) 3+ H NEGATIVE Urine RBC TNTC H /HPF Urine WBC 25-50 H /HPF Urine Squamous Epithelial Cells NONE /HPF Urine Crystals NONE /LPF Urine Bacteria LARGE H /HPF Urine Casts NONE /LPF Urine Mucus SMALL H /LPF Urine Culture Indicated YES White Blood Count 7.8 4.3-11.0 10^3/uL Red Blood Count 4.26 L 4.30-5.52 10^6/uL Hemoglobin 14.0 13.3-17.7 g/dL Hematocrit 42 40-54 % Mean Corpuscular Volume 97 80-99 fL Mean Corpuscular Hemoglobin 33 25-34 pg Mean Corpuscular Hemoglobin Concent 34 32-36 g/dL Red Cell Distribution Width 12.6 10.0-14.5 % Platelet Count 253 130-400 10^3/uL Mean Platelet Volume 9.4 9.0-12.2 fL Immature Granulocyte % (Auto) 1 % Neutrophils (%) (Auto) 75 42-75 % Lymphocytes (%) (Auto) 8 L 12-44 % Monocytes (%) (Auto) 15 H 0-12 % Eosinophils (%) (Auto) 1 0-10 % Basophils (%) (Auto) 1 0-10 % Neutrophils # (Auto) 5.9 1.8-7.8 10^3/uL Lymphocytes # (Auto) 0.6 L 1.0-4.0 10^3/uL Monocytes # (Auto) 1.2 H 0.0-1.0 10^3/uL Eosinophils # (Auto) 0.1 0.0-0.3 10^3/uL Basophils # (Auto) 0.0 0.0-0.1 10^3/uL Immature Granulocyte # (Auto) 0.1 0.0-0.1 10^3/uL Sodium Level 137 135-145 MMOL/L Potassium Level 4.4 3.6-5.0 MMOL/L Chloride Level 107 98-107 MMOL/L Carbon Dioxide Level 23 21-32 MMOL/L Anion Gap 7 5-14 MMOL/L Blood Urea Nitrogen 19 H 7-18 MG/DL Creatinine 0.79 0.60-1.30 MG/DL Estimat Glomerular Filtration Rate 94 BUN/Creatinine Ratio 24 Glucose Level 101 70-105 MG/DL Calcium Level 9.1 8.5-10.1 MG/DL Corrected Calcium 9.2 8.5-10.1 MG/DL Total Bilirubin 0.8 0.1-1.0 MG/DL Aspartate Amino Transf (AST/SGOT) 18 5-34 U/L Alanine Aminotransferase (ALT/SGPT) 20 0-55 U/L Alkaline Phosphatase 64 40-136 U/L C-Reactive Protein High Sensitivity 1.16 H 0.00-0.50 MG/DL Total Protein 6.6 6.4-8.2 GM/DL Albumin 3.9 3.2-4.5 GM/DL My Orders Orders - SIDDHARTH SANDERS MD Ed Iv/Invasive Line Start (11/12/22 12:28) Catheter(Urinary) Insert & Ass 03,15 (11/12/22 12:28) Cbc With Automated Diff (11/12/22 12:28) Comprehensive Metabolic Panel (11/12/22 12:28) Hs C Reactive Protein (11/12/22 12:28) Ua Culture If Indicated (11/12/22 12:28) Ed Iv/Invasive Line Start (11/12/22 12:28) Ns Iv 500 Ml (Sodium Chloride 0.9%) (11/12/22 12:30) Lidocaine 2% (Urojet) (Lidocaine 2% (Uro (11/12/22 12:30) Urine Culture (11/12/22 11:56) Ceftriaxone 1 Gram Iv (11/12/22 13:46) Medications Given in ED Current Medications Medications Dose Ordered Sig/Geeta Route Start Time Stop Time Status Last Admin Dose Admin Lidocaine HCl 10 ml ONCE ONCE TOP 11/12/22 12:30 11/12/22 12:32 DC 11/12/22 12:45 10 ML Sodium Chloride 500 ml @ 0 mls/hr Q0M ONCE IV 11/12/22 12:30 11/12/22 12:32 DC 11/12/22 12:45 500 MLS/HR Vital Signs/I&O 11/12/22 11:47 Temp 37.2 Pulse 73 Resp 18 B/P (MAP) 158/84 (108) Pulse Ox 96 Capillary Refill : Less Than 3 Seconds Blood Pressure Mean: 108 Progress Note : Progress Note Seen and evaluated. IV, labs including CBC, CMP and CRP ordered as well as UA. We will replace [place] catheter due to concerns for infection. Normal saline 500 mL bolus. Monitor patient. Differential diagnosis includes UTI, dehydration, electrolyte abnormality 317: CBC grossly normal. UA is nitrite positive with concerns for infection de spite being on antibiotic. CMP pending. 1350: CMP does show grossly normal electrolytes and LFTs with normal renal function and CRP is slightly elevated. UA is positive as discussed. We will initiate Rocephin 1 g IV now and change antibiotics from Bactrim DS to cephalexin. He has appointment with his urologist on Saturday and he will keep that appointment. I did discuss the importance of drinking water. Discharged home with return precautions. Patient and daughter verbalized understanding of instructions and agreement with plan. Departure Impression Primary Impression: Urinary tract infection Qualified Codes: N30.01 - Acute cystitis with hematuria Additional Impression: [place] catheter problem Qualified Codes: T83.9XXA - Unspecified complication of genitourinary prosthetic device, implant and graft, initial encounter Disposition: HOME, SELF-CARE Condition: Stable Departure-Patient Inst. Decision time for Depature: 13:49 Referrals: NADIA WONG DO (PCP/Family) Primary Care Physician Patient Instructions: Urinary Tract Infection, Adult (DC) Add. Discharge Instructions: All discharge instructions reviewed with patient and/or family. Voiced understanding. Take medications as directed. Follow-up with Dr. Caba on Saturday as scheduled. Your cultures will be complete by then and his office can call back for culture results if needed. If you are antibiotic does not work for what ever was cultured, you will be notified. Return for fever, vomiting, weakness, chills, abdominal pain, worsening blood in the urine or other concerns as needed. It is very important that you drink plenty of fluids including at least 6 glasses of water daily to prevent blockage and improve success with treating urinary tract infection. Scripts Cephalexin (Cephalexin) 500 Mg Capsule 500 MG PO BID for 7 Days, #14 CAP 0 Refills Prov: SIDDHARTH SANDERS MD 11/12/22 SIDDHARTH SANDERS MD Nov 12, 2022 12:39
[2022-11-12 12:58] LABS: CLARITY,URINE TURBID; COLOR,URINE BROWN; GLUCOSE, URINE (UA) NEGATIVE (NEGATIVE); KETONES,URINE 1+ (NEGATIVE); NITRITE,URINE POSITIVE (NEGATIVE); PROTEIN,URINE 3+ (NEGATIVE)
[2022-11-12 12:59] LABS: BILIRUBIN,URINE 3+ (NEGATIVE); LEUKOCYTE ESTERASE ,URINE 3+ (NEGATIVE)
[2022-11-12 13:00] LABS: BACTERIA,URINE LARGE /HPF; RBC,URINE TNTC /HPF; WBC,URINE 25-50 /HPF
[2022-11-12 13:03] LABS: BASOPHILS % (AUTO) 1 % (0-10); EOSINOPHILS # (AUTO) 0.1 10^3/uL (0.0-0.3); EOSINOPHILS % (AUTO) 1 % (0-10); HEMATOCRIT 42 % (40-54); LYMPHOCYTES # (AUTO) 0.6 10^3/uL (1.0-4.0); LYMPHOCYTES % (AUTO) 8 % (12-44); MEAN CORPUSCULAR HEMOGLOBIN 33 pg (25-34); MEAN CORPUSCULAR HGB CONC 34 g/dL (32-36); MEAN CORPUSCULAR VOLUME 97 fL (80-99); MEAN PLATELET VOLUME 9.4 fL (9.0-12.2); MONOCYTES # (AUTO) 1.2 10^3/uL (0.0-1.0); MONOCYTES % (AUTO) 15 % (0-12); NEUTROPHILS # (AUTO) 5.9 10^3/uL (1.8-7.8); NEUTROPHILS % (AUTO) 75 % (42-75); PLATELET COUNT 253 10^3/uL (130-400); WHITE BLOOD COUNT 7.8 10^3/uL (4.3-11.0)
[2022-11-12 13:15] LABS: ALBUMIN 3.9 GM/DL (3.2-4.5); POTASSIUM 4.4 MMOL/L (3.6-5.0)
[2022-11-12 13:16] LABS: CALCIUM 9.1 MG/DL (8.5-10.1)
[2022-11-12 13:18] LABS: TOTAL PROTEIN 6.6 GM/DL (6.4-8.2)
[2022-11-12 13:19] LABS: BILIRUBIN,TOTAL 0.8 MG/DL (0.1-1.0)
[2022-11-12 13:21] LABS: CREATININE SERUM 0.79 MG/DL (0.60-1.30)
[2022-11-12] MEDS ORDERED: cefTRIAXone IV/IM 1,000 MG in NS (IVPB) 50 ML 50 ML IV STA (13:46)
[2022-11-12] MEDS ORDERED: CEPH500C PO (13:48)
[2022-11-12 14:45] VITALS: BP 152/70
[2022-11-14] MEDS ORDERED: SULF1TAB38 PO (12:33)
== END 2022-11-12 14:45 | disposition home or self-care (01) ==
LOC: EDUNIT# 11:23 → ER 11:24
DX: T83.83XA Hemorrhage due to genitourinary prosthetic devices, implants and grafts, initial encounter (principal); N39.0 Urinary tract infection, site not specified; Z87.891 Personal history of nicotine dependence
CPT/HCPCS: 36415; 51702; 80053; 81000; 85025; 86141; 87077; 87088; 87186